=== PATIENT | male | born 1980 | race Caucasian/White ===

== ENCOUNTER 2019-01-01 16:01 | Emergency (ER) | payer SELFPAY ==
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
[2019-01-01] MEDS ORDERED: Bacitracin Oint 15 GM Tube TOP SCH (17:11)
[2019-01-01 17:56] VITALS: BP 118/73
--- NOTE | 2019-01-02 07:32 | CR ---
Left foot: Four views of the left foot were obtained. Comparison: No previous foot exam. Joint spaces are preserved. No fracture, dislocation or other bony abnormality is seen. Impression: 1. No abnormality is identified on left foot exam. Diagnostic code #1
--- NOTE | 2019-01-02 07:32 | CR ---
Left ankle: Four views of the left ankle were obtained. Comparison: No prior ankle study. Ankle mortise is symmetric. No fracture, dislocation or other bony abnormality is seen. Impression: 1. Nothing acute is appreciated on left ankle exam. Diagnostic code #1
== END 2019-01-01 17:53 | disposition home or self-care (01) ==
LOC: JD.ED 16:01
DX: S93.402A Sprain of unspecified ligament of left ankle, initial encounter (principal); S90.32XA Contusion of left foot, initial encounter; S80.811A Abrasion, right lower leg, initial encounter; Z91.018 Allergy to other foods; W16.112A Fall into natural body of water striking water surface causing other injury, initial encounter
CPT/HCPCS: 73610; 73630; 99284; A9270; 99282

== ENCOUNTER 2019-01-03 12:15 | Emergency (ER) | payer SELFPAY ==
[2019-01-03] MEDS ORDERED: Ibuprofen 600 MG Tab PO ONE (12:38)
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
[2019-01-03 13:43] VITALS: BP 103/64
== END 2019-01-03 14:11 | disposition home or self-care (01) ==
LOC: JD.ED 12:15
DX: G44.89 Other headache syndrome (principal); F17.210 Nicotine dependence, cigarettes, uncomplicated; Z91.048 Other nonmedicinal substance allergy status
CPT/HCPCS: 99283; A9270